=== PATIENT | female | born 1975 | race Caucasian/White ===

== ENCOUNTER 2016-03-05 13:12 | Day surgery (SDC) | payer OTHER ==
--- NOTE | 2016-03-03 21:39 | PCM.ANEPRE ---
Anesthesia Pre-Op Review Reason for Review: BMI, DM, PREVIOUS SMOKER Anesthesia Recommendations: Delay until Additional Data Obtain Additional Comments 40 yo with BMI 57 with DM, smoker. Called Dr Hinkle later this evening and awaiting conversation about risk management/airway management, potential post op intubation etc. Would be helpful to know functional capacity, METs. Note sent to Dr Pool to followup. Chart Reviewed by: Marlon Holt md, MD Mar 03, 2016 21:39
--- NOTE | 2016-03-04 11:28 | PCM.ANEPRE ---
Anesthesia Pre-Op Review Reason for Review: BMI, DM, PREVIOUS SMOKER Anesthesia Recommendations: Proceed with Procedure, Delay until Additional Data Obtain Additional Comments call placed to patient to ascertain info about functional capacity. Pt has of yet to call pre-op clinic back. Given that her surgery is scheduled for tomorrow there is only so much that can be done at this point. Anesthesiologist of the day to determine appropriateness of surgery with focused H&P. Chart Reviewed by: Hieu Hanson md, MD Mar 04, 2016 11:28
[~2016-03-05] VITALS: Ht 162.6 cm; Wt 149.9 kg
[2016-03-05] VITALS (10 sets, daily range): BP systolic 136–147; BP diastolic 62–83; PULSE 63–74; RESP 12–23; O2SAT 92–97
[~2016-03-05 13:12] MED LIST: AMLO5TAB2 PO; BUPR300T51 PO; BUSP30TA2 PO; CeFAZolin Inj 3 Gm/ D5W 50 mL Bag IV ONE; HYDR50TA76 PO; KLO5T PO; LISI40TA PO; Lactated Ringer's 1,000 ML IV SCH; Levofloxacin 500 mg/100 mL D5W IV ONE; MELO-259 PO; METF500T4 PO; OMEP40CA36 PO; PRAZ5CAP3 PO; PROP20TA5 PO; RANI300T4 PO
[2016-03-05] MEDS ORDERED: Bupiv-Spinal 0.75%/Dex 8.25% 2 mL Inj ONE (13:13)
[2016-03-05] MEDS ORDERED: fentaNYL-PF 50 mCg/mL 2 mL Inj ONE (13:13)
[2016-03-05] MEDS ORDERED: Propofol 10,000 mCg/mL 20 mL Inj ONE (13:13)
[2016-03-05] MEDS ORDERED: Phenylephrine 10,000 mCg/mL Inj ONE (13:13)
[2016-03-05] MEDS ORDERED: CeFAZolin Inj 3 Gm/ D5W 50 mL Bag IV ONE (13:47)
[2016-03-05] MEDS ORDERED: levoFLOXacin 500 mg/100 mL D5W Premix IV ONE (13:48)
[2016-03-05] MEDS ORDERED: Lactated Ringer's 1,000 ML IV ONE (14:00)
[2016-03-05] MEDS ORDERED: Atropine 0.4 mg/mL Inj IVPUSH PRN (14:40)
[2016-03-05] MEDS ORDERED: Lactated Ringer's 500 ML IV PRN (14:40)
[2016-03-05] MEDS ORDERED: Lactated Ringer's 1,000 ML IV SCH (14:40)
[2016-03-05] MEDS ORDERED: Ondansetron 2 mg/mL 2 mL Inj IVPUSH PRN (14:40)
[2016-03-05] MEDS ORDERED: MetoCLOpramide 5 mg/mL 2 mL Inj IVPUSH PRN (14:40)
[2016-03-05] MEDS ORDERED: fentaNYL-PF 50 mCg/mL 2 mL Inj IVPUSH PRN (14:40)
[2016-03-05] MEDS ORDERED: Phenylephrine 10,000 mCg/mL Inj IVPUSH PRN (14:40)
[2016-03-05] MEDS ORDERED: hydrALAZINE 20 mg/mL Inj IVPUSH PRN (14:40)
[2016-03-05] MEDS ORDERED: EPHEDrine Sulfate 50 mg/mL Inj IVPUSH PRN (14:40)
[2016-03-05] MEDS ORDERED: Labetalol 5 mg/mL 4 mL Inj IV PRN (14:40)
--- NOTE | 2016-03-05 14:50 | PCM.HPANE ---
Patient Data Surgeon Admitting Provider: Attending Provider:Anali Hinkle MD Primary Care Physician:Rocky Borges MD Other Provider:Suni Sueroingham Anesthesia Reason for Visit Right Ureteral Stone Ht/WT & BMI Height (Feet): 5 Height (Inches): 4 Weight (Kilograms): 150.59 Body Mass Index 56.00 Allergies Coded Allergies: Penicillins (Verified Allergy, Mild, RASH, 03/05/16) Sulfa (Sulfonamide Antibiotics) (Verified Allergy, Mild, RASH, 03/05/16) Uncoded Allergies: PENICILLIN (Allergy, Unknown, 10/21/13) SULFA (Allergy, Unknown, 10/21/13) Past Anesthesia History Anesthesia History: Positive for:: Anesthesia Reactions (breather, apnic), Denies:: Abnormal Airway, Difficult Intubation, Fam Anesthesia Reaction, Fam Malignant Hypertherm, Malignant Hyperthermia Diabetes History Hx Diabetes?: Yes Type of Diabetes: Type II MRSA MRSA: No Medications Reported Medications Ranitidine 300 Mg Mjtakv404 Mg PO HS Ref 0 11/01/14 Clonazepam 0.5 Mg Tab0.5 Mg PO BID PRN For Anxiety 30 Days Ref 0 11/04/13 Buspirone 30 Mg Lxtcju21 Mg PO BID 30 Days Ref 0 11/04/13 Lisinopril 40 Mg Safdpt28 Mg PO DAILY 30 Days Ref 0 11/04/13 Prazosin 5 Mg Axwyiya92 Mg PO HS 30 Days 11/04/13 Metformin 500 Mg Ummbgf122 Mg PO DAILYWM 30 Days Ref 0 11/04/13 Hydroxyzine HCl (HydrOXYzine Hcl)50 Mg Yaitzv26 Mg PO HS PRN For Itching Ref 0 11/04/13 Amlodipine 5 Mg Tablet5 Mg PO DAILY 30 Days Ref 0 11/04/13 Discontinued Reported Medications Propranolol HCl 20 Mg Tixukv32 Mg PO BID 90 Days Ref 0 03/03/16 Omeprazole 40 Mg Capsule.dr40 Mg PO DAILY Ref 0 11/01/14 Bupropion ER (Wellbutrin XL)300 Mg Tab.er.13v220 Mg PO DAILY #30 TABLET Ref 0 11/04/13 Meloxicam 7.5 Mg Tablet7.5 Mg PO BID 30 Days Ref 0 11/04/13 Propranolol HCl 20 Mg/5 Ml Xjcfpqtc52 Mg PO BID 11/04/13 Furosemide 40 Mg Ldoqso93 Mg PO DAILY 30 Days 11/04/13 History HEENT History: Positive for:: Sinus Problem Denies:: Abnormal Airway Difficult Intubation Dysphagia Hearing Problem Hx of Heart Problems?: Yes Cardiovascular History: Positive for:: Hypertension Denies:: AICD Atrial Fibrillation Chest Pain Congestive Heart Failure Pacemaker Valvular Heart Disease Other Cardiac History: PT CAN CLIMB A FLIGHT OF STAIRS & WALK ONE BLOCK BUT IS "WINDED" AFTER ANY EXERTION. Hx of Respiratory Problem?: Yes Respiratory History: Positive for:: Use of C-PAP Machine Denies:: Asthma COPD Cough Hemoptysis Pneumonia Tuberculosis Other Resp Pertinent History: HX OF BRONCHITIS Neurological History: Positive for:: Headaches Denies:: CVA Dementia Hx of GI Problems?: Yes Gastrointestinal History: Positive for:: Gastroesphageal Reflux Hiatal Hernia Denies:: Cirrhosis Diverticulitis Rectal Bleeding Other GI Pertinent History: Genitourinary History: Positive for:: Kidney Stones Urinary Tract Infection Female Hx: Denies:: Currently (hysterectomy) Skin History: Positive for:: History Skin Disorders? (bruise easily ) Hx Musculoskeletal Problems?: Yes Musculoskeletal History: Positive for:: Osteoarthritis Denies:: Joint Replacement Psycho Social History: Positive for:: Hx Depression Denies:: Anxiety Hx Surgeries?: Yes (po, hysterectomy) Hx Any Other Health Problems?: Yes Hx Diabetes: Yes Hx Alcohol Use: NoHx Substance Use: No Smoking Status: Former Smoker Have You Smoked inLast 12 mo: Yes Stop/Bang S-Snoring: Do You Snore Loudly: Yes T-Tired: feel tired, fatigued: Yes O-Obsered: Observed not breath: Yes P-Blood Pressure: treated: Yes B- Body Mass Index > 35 kg/m2: Yes N- Neck Large Circumference: Yes G- Gender Male: No Risk Assessment Category Category 1A: Patient has history of documented sleep apnea, and HAS NOT received any narcotic, sedative or anesthesia administration during this stay. Category 1B: Patient has history of documented sleep apnea, and HAS received any narcotic , sedative or anesthesia administration during this stay Category 2: Patient has SUSPECTED Obstructive Sleep Apnea, and HAS received any narcotic , sedative or anesthesia administration during this stay. Category 3: Patient has SUSPECTED Obstructive Sleep Apnea and HAS NOT received narcotic, sedative or anesthesia administration during this stay. Category 4: Outpatient in Procedural Areas with known sleep apnea or who screen positive for High Risk via the STOP/BANG questionnaire. Exam Exam General Appearance: Alert, Oriented X3, Cooperative, No Acute Distress HEENT/AIRWAY: MP 2, Neck Movement (large neck circumference), Mouth Opening (3 FBMO) Lungs: Clear to Auscultation, Diminished Heart: Exam Unremarkable, Regular Rate/Rhythm, No Murmurs/Rubs/Gallops Plan Impression Patient chart reviewed, patient interviewed and anesthestic plan with risks, benefits, and alternatives discussed, and informed consent obtained. NPO Status: > 8 hrs ASA Physical Status: ASA3 Severe Disease (BMI 57) Anesthetic Plan: SAB Bene/Risks/Altern/Consents: Yes HP Complete Prior to Induction: Yes Rocky Ruiz MD Mar 05, 2016 13:26
[2016-03-05] MEDS ORDERED: Belladonna Alk-Opium 60 mg Rectal Suppository RECTAL ONE (15:07)
[2016-03-05] MEDS ORDERED: Lidocaine 2% 5 mL Urojet Topical Jelly Syringe MUC_MEMBRM ONE (15:09)
[2016-03-05] MEDS ORDERED: HYDROcodone-APAP 5-325 mg Tablet PO PRN (15:20)
[2016-03-05] MEDS ORDERED: Ondansetron 8 mg ODT Tablet PO PRN (15:20)
[2016-03-05] MEDS ORDERED: Phenazopyridine 97.5 mg Tablet PO PRN (15:20)
--- NOTE | 2016-03-05 15:38 | PCM.ANEP1 ---
Post Anesthesia Phase 1 PACU Phase 1 Assessment Vital Signs Vital Signs Date Time Temp Pulse Resp B/P Pulse Ox O2 Delivery O2 Flow Rate FiO2 03/05/16 15:25 66 23 138/66 92 Room Air 03/05/16 15:20 67 15 140/63 93 Room Air 03/05/16 15:15 37.5 63 16 147/62 96 Room Air 03/05/16 13:45 36.5 74 18 136/64 97 Room Air Anesthetic Administered: GA Level of Alertness: Awake, talking VERNON's with Equal Strength: Yes Pain: No Nausea or Vomiting: No Oxygen Delivery: Room Air Lungs: Clear to Auscultation, Diminished Dermatome Level: T12 (Symphysis Pubis) Rocky Ruiz MD Mar 05, 2016 15:38
--- NOTE | 2016-03-05 15:38 | PCM.ANEP2 ---
Post Anesthesia Evaluation ASA/CMS Post Anesthesia VS in Patient's Normal Range?: Yes Resp Stable; Airway Patent?: Yes CV Function & Hydration Stable: Yes Mental Status Recovered?: Yes Pain control Satisfactory?: Yes N/V Control Satisfactory?: Yes Rocky Ruiz MD Mar 05, 2016 15:38
--- NOTE | 2016-03-05 16:36 | DRSVH ---
PROCEDURE: X-RAY RETROGRADE UROGRAPHY INDICATIONS: RIGHT KIDNEY STONE TECHNIQUE: 6 intra-operative images acquired by the Urology service. COMPARISON: Outside Film, CT, CT ABD PELVIS WO CON, 02/18/2016, 8:57. FINDINGS: Mild prominence of the right renal collecting system which otherwise appears normal. Visu alized portions of the right ureter demonstrate tortuosity and no definite intraluminal filling defec ts are visualized. No strictures. No extravasation of contrast media. IMPRESSION: Prominence of the right renal collecting system otherwise no definite ureteral intralumin al filling defects are seen. Dictated by: Americo RICK Interpreted: Pili Amaya MD on 03/05/2016 at 16:36 Transcribed by: PONCHO on 03/05/2016 at 16:36 Approved by: Pili Amaya M.D. on 03/05/2016 at 17:39
--- NOTE | 2016-03-06 16:35 | OP ---
[address] [address] OPERATIVE REPORT PATIENT: ALLYSON WILSON : 1975 MR#: [id number] ADMIT: 03/05/2016 JOB ID: [id number] DATE OF SURGERY: 03/05/2016 SURGEON: Anali Hinkle MD PREOPERATIVE DIAGNOSIS(ES): 1. Ureteral calculus. 2. Persistent right flank pain. 3. Morbid obesity. POSTOPERATIVE DIAGNOSIS(ES): 1. Ureteral calculus. 2. Persistent right flank pain. 3. Morbid obesity. 4. Suggestion that ureteral calculus had recently passed. PROCEDURE: 1. Right ureteroscopy. 2. Retrograde pyelogram. ANESTHESIA: Spinal. INDICATIONS: Patient is a 40-year-old woman with morbid obesity, BMI of 57 as seen by ABDIFATAH Isaac in the [facility] on February 27, 2016 with complaints of intractable right-sided flank pain, urgency, frequency, outside CT scan showing a 5-6 mm distal ureteral stone on the right with proximal hydroureteronephrosis. The patient was set up for surgical intervention as her pain was intractable, stating she had been having pain for two weeks. Urine was clear. She was counseled about risks and benefits of various treatment options. Given her obesity and the distal location of the stone, shockwave lithotripsy was not really an option and she elected ureteroscopic treatment if indicated. PROCEDURE IN DETAIL: After appropriate informed consent was obtained, the patient was brought to the operating room. She received IV antibiotics prior to onset of the procedure. Spinal anesthesia was induced. She was carefully placed in dorsal lithotomy position. All pressure points carefully padded. Cleaned, prepped, and draped in usual sterile fashion. Rigid scope was introduced into the patient's bladder which was surveyed and found to be grossly normal in appearance. The right ureteral orifice was seen with minimal efflux. We performed a retrograde pyelogram on this side. Did not see an obvious location of stone. Proximal ureter was more dilated in the distal, however, the tapering was smooth. No filling defects to suggest stone. Wire was passed. There was a little bit of the efflux of contrast at this point, suggestive of some obstruction. The pre-wire retrograde pyelogram had revealed some ureteral tortuosity which was removed with a wire as well. Once we had done this, we removed the cystoscope, drained the bladder and left the wire in as a safety wire advanced with the rigid ureteroscope to mid ureter. There was evidence of previous location of stone impaction, however, no stone was seen. The proximal ureter was nicely widely dilated. Once we reached the limits of the rigid scope, we removed this and again using the guidewire as a safety wire, we advanced the flexible ureteroscope over a 2nd wire, placed with a dual-lumen catheter up into the renal pelvis. This was widely dilated. We inspected all the visible calices. No stone was seen, cleared the ureter while removing the scope as the majority of the ureter was widely dilated. We were able to get the rigid scope up to the level where more marker dilation began. We elected to leave her stent-free. There was minimal hematuria and this was irrigated out. There seemed to be good clear efflux from the right ureteral orifice. The patient's bladder was drained. She was given a B and O suppository for postop comfort, awakened, and taken in stable condition to the postanesthesia care unit.
== END 2016-03-05 23:59 | disposition home or self-care (01) ==
LOC: SAS 13:12
PROVIDERS: ATTEND Urology
DX: N20.1 Calculus of ureter (principal); R35.0 Frequency of micturition; R10.31 Right lower quadrant pain; E11.9 Type 2 diabetes mellitus without complications; I10 Essential (primary) hypertension; K21.9 Gastro-esophageal reflux disease without esophagitis; F32.9 Major depressive disorder, single episode, unspecified; K58.9 Irritable bowel syndrome, unspecified; N28.9 Disorder of kidney and ureter, unspecified; E66.01 Morbid (severe) obesity due to excess calories; Z68.43 Body mass index [BMI] 50.0-59.9, adult; Z79.84 Long term (current) use of oral hypoglycemic drugs; Z87.442 Personal history of urinary calculi; Z87.891 Personal history of nicotine dependence